=== PATIENT | male | born 1975 | race Caucasian/White ===

== ENCOUNTER 2021-07-28 10:20 | Day surgery (SDC) | payer OTHER ==
[2021-07-27 11:29] LABS: COVID AG,FIA SOURCE NASOPHARYNGEAL
[~2021-07-28] VITALS: Ht 170.2 cm; Wt 131.8 kg
[2021-07-28] MEDS ORDERED: PROPOFOL 1% 20 ML VIAL IVP ONE (10:21)
[2021-07-28] MEDS ORDERED: SODIUM CHLORIDE 0.9% 1,000 ML IV ONE (10:30)
[2021-07-28] MEDS ORDERED: IBUP-2071 PO (10:52)
[2021-07-28] MEDS ORDERED: LISI-892 PO (10:52)
[2021-07-28] MEDS ORDERED: ASPI-1450 PO (10:52)
[2021-07-28] MEDS ORDERED: CALC250T2 PO (10:52)
[2021-07-28] MEDS ORDERED: CHOL-35 PO (10:52)
[2021-07-28] MEDS ORDERED: ALLO100T2 PO (10:52)
[2021-07-28] MEDS ORDERED: ATOR10TA84 PO (10:52)
[2021-07-28] MEDS ORDERED: RINGERS SOLUTION,LACTATED 1,000 ML IV ONE ×2 (10:58→11:30)
[2021-07-28] MEDS ORDERED: SODIUM CHLORIDE 0.9% 1,000 ML ONE (11:24)
[2021-07-28 11:26] LABS: GLUCOMETER DEV NAME(LOC) SDS.; GLUCOSE,POINT OF CARE 106 MG/DL (70-110)
== END 2021-07-28 14:25 | disposition home or self-care (01) ==
LOC: SURGERY 10:20
PROVIDERS: ATTEND Internal Medicine Gastroenterology
DX: D50.9 Iron deficiency anemia, unspecified (principal); K64.8 Other hemorrhoids; Z79.899 Other long term (current) drug therapy; K21.9 Gastro-esophageal reflux disease without esophagitis; E11.9 Type 2 diabetes mellitus without complications; M10.9 Gout, unspecified; Z98.890 Other specified postprocedural states
CPT/HCPCS: 45378; 43239; 82962; 87426; 88305; 88312; 88313; C1769; C9803; J2704; J7030; J7120